=== PATIENT | female | born 1935 | race Caucasian/White ===

== ENCOUNTER → 2019-08-13 | Outpatient (CLI) | payer MEDICARE ==
--- NOTE | 2019-08-13 10:41 | REP ---
ultrasonographic evaluation of the urinary bladder was ordered to assess urinary bladder volumes before and after voiding. Multiple ultrasonographic images of the urinary bladder were obtained. The pre-void urinary bladder calculation of 515 mL and the post-void calculation si 240 mL. This renders a 47% post-void residual. No gross urinary bladder wall abnormalities were noted. This limited transvesical exam estimated the wall thickness to be less than 3 mm. That is an estimation. Certainly, small mucosal irregularities cannot be ruled out by transvesical ultrasound. IMPRESSION: Pre- and post-void urinary bladder volume calculations and other findings and limitations as described above. Electronically Signed by Haresh Mckenzie DO 08/13/2019 11:13 A
--- NOTE | 2019-08-13 10:51 | REP ---
RENAL ULTRASOUND WITH DUPLEX DOPPLER RENAL ARTERY EVALUATION: Real-time sonographic evaluation of the kidneys performed. Both kidneys are somewhat atrophic and hyperechoic in echotexture suggesting medical renal disease. Right kidney measures 7.9 x 4.7 x 3.8 cm and left kidney 8.7 x 3.7 x 4.8 cm. No hydronephrosis is seen. There appear to be two subcentimeter cysts in the upper pole of the right kidney, approximately 6 mm in diameter. On the left in the upper pole, there is a complex nodule medially 2.1 x 1.6 x 2.0 cm and another laterally 1.8 x 1.4 x 1.6 cm. These may represent complex cysts or solid nodules. There is a 1 cm cyst in the medial left lower pole. Duplex Doppler evaluation of renal arteries is performed bilaterally. Peak systolic velocity of the abdominal aorta at the level of the renal arteries is 77 m/s. Peak systolic velocity of the main right renal artery is 119 cm/s. Renal or aortic ratio 1.7. Resistive indices right kidney are measured in the upper, middle, and lower thirds and range between 0.66 and 0.77. Acceleration times range between 0.067 and 0.083. Peak systolic velocity of the main left renal artery is 137 cm/s, renal to aortic ratio is 2.0. Resistive indices left kidney range between 0.69 and 0.77. Acceleration times range between 0.096 and 0.163. IMPRESSION: Bilateral renal atrophy with echogenic echotexture suggesting medical renal disease. Two complex lesions in the upper pole of the left kidney measure 2.1 cm and 1.8 cm maximally and may represent complex cysts or solid nodules. There is no direct evidence of hemodynamically significant renal artery stenosis. Elevated acceleration times on the left suggest possible mild stenosis of the main left renal artery 50-60%. Electronically Signed by Manish Bledsoe MD 08/13/2019 12:04 P
== END ==
LOC: M RAD 09:10
PROVIDERS: ATTEND Internal Medicine Nephrology
DX: N18.3 Chronic kidney disease, stage 3 (moderate) (principal); I12.9 Hypertensive chronic kidney disease with stage 1 through stage 4 chronic kidney disease, or unspecified chronic kidney disease